=== PATIENT | female | born 1950 | race Caucasian/White ===

== ENCOUNTER 2022-07-29 14:11 | Inpatient (IN) ==
[2022-07-29] MEDS ORDERED: Ondansetron 4 MG/2 ML VIAL IVP ONE (17:21)
[2022-07-29] MEDS ORDERED: Ketorolac 30 MG/ML VIAL IVP ONE (17:21)
[2022-07-29 17:57] LABS: Basophils % 0.3 %; Eosinophils % 0.2 %
[2022-07-29 17:59] LABS: Immature Platelets 13.7 % (1.1-6.1); Mean Corpuscular HGB Conc 31.2 g/dL (31.6-35.5); Red Cell Distribution Width 14.6 % (11.5-14.5)
[2022-07-29 18:03] LABS: Hematocrit 31.1 % (35.3-44.9); Hemoglobin 9.7 g/dL (11.5-15.4); Immature Granulocytes % 0.5 % (0-4); Lymphocytes # 1.5 K/mcL (0.6-4.6); Lymphocytes % 11.2 %; Mean Corpuscular Hemoglobin 24.4 pg (28.0-33.3); Mean Corpuscular Volume 78.1 fL (83.0-100.0); Mean Platelet Volume 11.5 fL (9.4-12.4); Monocytes # 1.3 K/mcL (0.0-1.3); Monocytes % 10.1 %; Neutrophils # 10.1 K/mcL (1.6-8.9); Platelet Count 254 K/mcL (140-400); Red Blood Count 3.98 M/mcL (3.82-4.97); Segmented Neutrophils % 77.7 %
[2022-07-29 18:18] LABS: Calcium 9.8 mg/dL (8.6-10.3); Potassium 3.8 mEq/L (3.5-5.1)
[2022-07-29 19:03] LABS: Bilirubin,Urine Negative (Negative); Blood,Urine Large (Negative); Clarity,Urine Clear (Clear); Color,Urine Yellow (Yellow); Glucose,Urine (UA) Normal (Normal); Ketones,Urine Negative (Negative); Leukocyte Esterase,Urine Negative (Negative); Nitrite,Urine Negative (Negative); Protein,Urine 30 mg/dL (Neg-Trace); Specific Gravity,Urine >= 1.030 (1.010-1.025); Urobilinogen,Urine Normal (Normal)
[2022-07-29 19:06] LABS: Hyaline Casts,Urine Few per lpf (None Seen); Mucus,Urine Few per lpf (None-Few); Squamous Epithelial Cell,Urine None Seen per hpf (None-Few); WBC,Urine 0-3 per hpf (0-3)
[2022-07-29] MEDS ORDERED: Ondansetron 4 MG/2 ML VIAL IVP PRN (20:05)
[2022-07-29] MEDS ORDERED: Naloxone 0.4 MG/ML INJ IVP PRN (20:05)
[2022-07-29] MEDS ORDERED: cefTRIAXone 1,000 MG in 0.9 % Sodium Chloride Mini Bag 100 ML IVPB SCH (21:00)
[2022-07-29] MEDS: Ringers Solution, Lactated 1,000 ML IVC SCH (21:52)
[2022-07-30] MEDS ORDERED: sulfaSALAzine 500 MG TABLET PO PRN ×2 (01:30→18:30)
[2022-07-30 05:51] LABS: Basophils # 0.1 K/mcL (0.0-0.2); Basophils % 0.6 %; Eosinophils # 0.1 K/mcL (0.0-0.6); Hematocrit 27.5 % (35.3-44.9); Hemoglobin 8.4 g/dL (11.5-15.4); Immature Granulocytes % 0.2 % (0-4); Lymphocytes # 1.4 K/mcL (0.6-4.6); Lymphocytes % 16.1 %; Mean Corpuscular HGB Conc 30.5 g/dL (31.6-35.5); Mean Corpuscular Hemoglobin 24.6 pg (28.0-33.3); Mean Corpuscular Volume 80.4 fL (83.0-100.0); Mean Platelet Volume 10.6 fL (9.4-12.4); Monocytes # 0.7 K/mcL (0.0-1.3); Monocytes % 8.2 %; Neutrophils # 6.4 K/mcL (1.6-8.9); Platelet Count 169 K/mcL (140-400); Red Blood Count 3.42 M/mcL (3.82-4.97); Red Cell Distribution Width 14.6 % (11.5-14.5); Segmented Neutrophils % 73.9 %; White Blood Count 8.7 K/mcL (4.3-11.1)
[2022-07-30 05:57] LABS: INR 1.1; Prothrombin Time 12.7 Seconds (9.4-12.1)
[2022-07-30 06:16] LABS: Albumin 3.5 g/dL (3.5-5.7); Albumin/Globulin Ratio 1.2 (1.1-2.2); Bilirubin,Direct 0.1 mg/dL (0.0-0.2); Bilirubin,Indirect 0.3 mg/dL (0.0-1.0); Bilirubin,Total 0.4 mg/dL (0.3-1.0); Calcium 9.3 mg/dL (8.6-10.3); Magnesium 1.6 mg/dL (1.6-2.6); Potassium 3.4 mEq/L (3.5-5.1); Total Protein 6.5 g/dL (6.4-8.9)
[2022-07-30 06:18] LABS: % Iron Saturation 14 % (15-50); Iron 71 mcg/dL (50-170); Transferrin 369 mg/dL (203-362)
[2022-07-30 08:31] LABS: Ferritin < 8 ng/mL (10-120); Folate 7.6 ng/mL (3.0-16.0)
[2022-07-30] MEDS ORDERED: DilTIAZem CD (24hr) 120 MG CAP.ER.24H PO SCH (09:00)
[2022-07-30] MEDS ORDERED: lisinopriL 20 MG TABLET PO SCH (09:00)
[2022-07-30] MEDS ORDERED: (Colestipol Hcl [Colestid] 1 GM Tablet) PO SCH (09:00)
[2022-07-30] MEDS: Ringers Solution, Lactated 1,000 ML IVC SCH (09:01)
[2022-07-30] MEDS ORDERED: *HR* Succinylcholine 200 MG/10 ML VIAL IVP ONE (15:32)
[2022-07-30] MEDS ORDERED: *HR* FentaNYL (PF) 100 MCG/2 ML VIAL ONE (15:32)
[2022-07-30] MEDS ORDERED: Ondansetron 4 MG/2 ML VIAL ONE (15:32)
[2022-07-30] MEDS ORDERED: *HR* Propofol 200 MG/20 ML VIAL IVP ONE (15:32)
[2022-07-30] MEDS ORDERED: *HR* Rocuronium Bromide 50 MG/5 ML VIAL ONE (15:32)
[2022-07-30] MEDS ORDERED: Lidocaine -MPF 2% 5 ML VIAL ONE (15:32)
[2022-07-30] MEDS ORDERED: *HR* FentaNYL (PF) 100 MCG/2 ML VIAL IVP PRN (16:09)
[2022-07-30] MEDS ORDERED: Ondansetron 4 MG/2 ML VIAL IVP PRN ×2 (16:09→18:30)
[2022-07-30] MEDS ORDERED: Iopamidol - 300 100 ML INFUS..BTL ONE (16:39)
[2022-07-30] MEDS ORDERED: Acetaminophen IV 1,000 MG/100 ML BAG IVPB PRN (17:52)
[2022-07-30] MEDS ORDERED: Acetaminophen IV 1,000 MG/100 ML BAG IVPB ONE (17:59)
[2022-07-30] MEDS ORDERED: Naloxone 0.4 MG/ML INJ IVP PRN (18:30)
[2022-07-30] MEDS ORDERED: cefTRIAXone 1,000 MG in 0.9 % Sodium Chloride 10 ML IVPB SCH (21:00)
[2022-07-31 07:32] VITALS: BP 166/71; PULSE 91; TEMP 98.3; O2SAT 95
[2022-07-31] MEDS ORDERED: DilTIAZem CD (24hr) 120 MG CAP.ER.24H PO SCH (09:00)
[2022-07-31] MEDS ORDERED: lisinopriL 20 MG TABLET PO SCH (09:00)
== END 2022-07-31 13:13 | disposition home or self-care (01) | DRG 660 ==
LOC: 3ANU 14:11 → EMEROOARM 14:11 → SUATTDRO 19:46 → 3BNU 19:51
PROVIDERS: ADMIT Student in an Organized Health Care Education/Training Program; ATTEND Internal Medicine